=== PATIENT | female | born 1995 | race African-American/Black ===

== ENCOUNTER 2017-03-30 11:59 | Emergency (ER) | payer SELFPAY ==
[~2017-03-30] VITALS: Ht 175.3 cm; Wt 61.2 kg
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
--- NOTE | 2017-03-30 12:12 | NUR ---
MD MEDRANO AT BEDSIDE
[2017-03-30 12:13] VITALS: BP 128/80
--- NOTE | 2017-03-30 12:21 | NUR ---
Patient discharged to home in stable condition. Written and verbal after care instructions given. Patient verbalizes understanding of instruction.
== END 2017-03-30 12:22 | disposition home or self-care (01) ==
LOC: ER 12:09
DX: S09.90XA Unspecified injury of head, initial encounter (principal); V49.49XA Driver injured in collision with other motor vehicles in traffic accident, initial encounter; Y93.89 Activity, other specified; Y92.410 Unspecified street and highway as the place of occurrence of the external cause; Y99.9 Unspecified external cause status
CPT/HCPCS: 99283; A4606; Z7610

== ENCOUNTER 2023-03-15 07:46 | Emergency (ER) | payer BC ==
[~2023-03-15] VITALS: Ht 172.7 cm; Wt 57.6 kg
[2023-03-15] MEDS ORDERED: MORPHINE SULFATE INJ 2 MG/ML DISP.SYRIN IV ONE (08:30)
[2023-03-15] MEDS ORDERED: MORPHINE SULFATE INJ 2 MG/ML DISP.SYRIN ONE (08:39)
[2023-03-15 08:45] LABS: BASOPHILS % (AUTO) 0.5 % (0.0-2.0); EOSINOPHILS # (AUTO) 0.1 K/uL (0.0-0.7); HEMATOCRIT 38 % (33-45); HEMOGLOBIN 12.4 g/dL (11.5-14.8); LYMPHOCYTES # (AUTO) 2.7 K/uL (0.8-4.8); LYMPHOCYTES % (AUTO) 39.3 % (20.0-44.0); MEAN CORPUSCULAR HEMOGLOBIN 28 PG (26.0-33.0); MEAN CORPUSCULAR HGB CONC 33 g/dl (31.0-36.0); MEAN CORPUSCULAR VOLUME 84 fL (82-100); MONOCYTES # (AUTO) 0.4 K/uL (0.1-1.30); MONOCYTES % (AUTO) 5.8 % (2.0-12.0); NEUTROPHILS # (AUTO) 3.6 K/uL (1.8-8.9); NEUTROPHILS % (AUTO) 52.4 % (43.0-81.0); PLATELET COUNT (AUTO) 305 K/uL (150-450); RED BLOOD CELL COUNT(AUTO) 4.48 MIL/uL (4.0-5.2); RED CELL DISTRIBUTION WIDTH 15.4 % (11.5-15.0)
[2023-03-15 08:53] LABS: APPEARANCE,URINE CLEAR (CLEAR); BILIRUBIN,URINE NEGATIVE (NEGATIVE); BLOOD, URINE NEGATIVE Ery/uL (NEGATIVE); COLOR,URINE YELLOW (YELLOW); KETONES,URINE NEGATIVE (NEGATIVE); LEUKOCYTE ESTERASE ,URINE NEGATIVE (NEGATIVE); NITRITE, URINE NEGATIVE (NEGATIVE); PROTEIN,URINE NEGATIVE (NEGATIVE); UGLUCOSE NEGATIVE (NEGATIVE); UROBILINOGEN,URINE 0.2 EU/dL (0.2)
[2023-03-15 08:54] LABS: PREGNANCY TEST URINE QUAL NEGATIVE (NEGATIVE)
[2023-03-15 09:00] LABS: BILIRUBIN,DIRECT 0.2 mg/dL (0.0-0.2); BILIRUBIN,TOTAL 0.6 mg/dL (0.2-1.0); CALCIUM, SERUM 9.5 mg/dL (8.5-10.1); CREATININE 0.9 mg/dL (0.6-1.3); POTASSIUM 3.6 mmol/L (3.5-5.1); TOTAL PROTEIN, SERUM 8.4 g/dL (6.4-8.2)
[2023-03-15] MEDS ORDERED: IOHEXOL-300 100 ML VIAL IV ONE (09:22)
[2023-03-15] MEDS ORDERED: IV NS 0.9% 250 ML IV ONE (09:23)
[2023-03-15] MEDS ORDERED: MAG HYDROX/AL HYDROX/SIMETH 30 ML UDC PO ONE (11:30)
[2023-03-15] MEDS ORDERED: LIDOCAINE VISCOUS 2% UD 15 ML UDC MM ONE (11:30)
[2023-03-15] MEDS ORDERED: PANTOPRAZOLE 40 MG VIAL IV ONE (11:30)
[2023-03-15] MEDS ORDERED: FAMOTIDINE/PF INJ 20 MG/2 ML VIAL IV ONE ×2 (11:30→11:39)
[2023-03-15] MEDS ORDERED: PANTOPRAZOLE 40 MG VIAL ONE (11:38)
[2023-03-15] MEDS ORDERED: MAG HYDROX/AL HYDROX/SIMETH 30 ML UDC ONE (11:38)
[2023-03-15] MEDS ORDERED: LIDOCAINE VISCOUS 2% UD 15 ML UDC ONE (11:38)
[2023-03-15] MEDS ORDERED: ONDANSETRON HCL/PF 4 MG/2 ML VIAL ONE (12:32)
[2023-03-15] MEDS ORDERED: OMEP20CA15 PO (12:52)
[2023-03-15] MEDS ORDERED: MAG30ORA PO (12:52)
[2023-03-15] MEDS ORDERED: ONDANSETRON HCL/PF - ER 4 MG/2 ML VIAL IV ONE (13:00)
[2023-03-15 13:05] VITALS: BP 134/68; TEMP 97.8; O2SAT 100
== END 2023-03-15 13:06 | disposition home or self-care (01) ==
LOC: ER 07:51
DX: R10.13 Epigastric pain (principal); Z60.2 Problems related to living alone
CPT/HCPCS: 99285; 74176; 96374; 96375; 85025; 80048; 87086; 83690; 80076; 84703; 81003; 36415; J3490; J7050; C9113; J2270; Q9967; J2405

== ENCOUNTER 2024-12-10 17:56 | Emergency (ER) | payer BC ==
[~2024-12-10] VITALS: Ht 172.7 cm; Wt 59.0 kg
[~2024-12-10 17:56] MED LIST: MAG30ORA PO; OMEP20CA15 PO
[2024-12-10] MEDS ORDERED: ONDANSETRON 4 MG TAB.RAPDIS ONE (18:35)
[2024-12-10] MEDS ORDERED: FAMOTIDINE (20 MG) 20 MG TABLET ONE (18:35)
[2024-12-10] MEDS ORDERED: ACETAMINOPHEN ES 500 MG TABLET ONE (18:35)
[2024-12-10] MEDS ORDERED: MAG HYDROX/AL HYDROX/SIMETH 30 ML UDC ONE (18:35)
[2024-12-10 18:37] LABS: APPEARANCE,URINE CLEAR (CLEAR); BILIRUBIN,URINE NEGATIVE (NEGATIVE); BLOOD, URINE 1+ Ery/uL (NEGATIVE); COLOR,URINE YELLOW (YELLOW); KETONES,URINE NEGATIVE (NEGATIVE); LEUKOCYTE ESTERASE ,URINE 2+ (NEGATIVE); NITRITE, URINE NEGATIVE (NEGATIVE); PROTEIN,URINE NEGATIVE (NEGATIVE); UGLUCOSE NEGATIVE (NEGATIVE); UROBILINOGEN,URINE 0.2 EU/dL (0.2)
[2024-12-10 18:39] LABS: PREGNANCY TEST URINE QUAL NEGATIVE (NEGATIVE)
[2024-12-10] MEDS: FAMOTIDINE (20 MG) 20 MG TABLET PO ONE (18:42)
[2024-12-10] MEDS: ONDANSETRON 4 MG TAB.RAPDIS PO ONE (18:42)
[2024-12-10] MEDS: MAG HYDROX/AL HYDROX/SIMETH 30 ML UDC PO ONE (18:42)
[2024-12-10] MEDS: ACETAMINOPHEN ES 500 MG TABLET PO ONE (18:42)
[2024-12-10 18:50] LABS: ADD URINE CULTURE YES; BACTERIA,URINE Many /HPF (None Seen); SQUAMOUS EPITHELIAL CELL,UR Few /HPF (None Seen); WBC,URINE 51-80 /HPF (0-3)
[2024-12-10 18:50] LABS: BASOPHILS % (AUTO) 0.6 % (0.0-2.0); EOSINOPHILS # (AUTO) 0.1 K/uL (0.0-0.7); HEMATOCRIT 39 % (33-45); HEMOGLOBIN 12.5 g/dL (11.5-14.8); LYMPHOCYTES # (AUTO) 1.4 K/uL (0.8-4.8); LYMPHOCYTES % (AUTO) 29.2 % (20.0-44.0); MEAN CORPUSCULAR HEMOGLOBIN 28 PG (26.0-33.0); MEAN CORPUSCULAR HGB CONC 32 g/dl (31.0-36.0); MEAN CORPUSCULAR VOLUME 88 fL (82-100); MONOCYTES # (AUTO) 0.3 K/uL (0.1-1.30); MONOCYTES % (AUTO) 6.6 % (2.0-12.0); NEUTROPHILS # (AUTO) 2.9 K/uL (1.8-8.9); NEUTROPHILS % (AUTO) 61.6 % (43.0-81.0); PLATELET COUNT (AUTO) 299 K/uL (150-450); RED BLOOD CELL COUNT(AUTO) 4.42 MIL/uL (4.0-5.2); RED CELL DISTRIBUTION WIDTH 13.6 % (11.5-15.0); WHITE BLOOD COUNT (AUTO) 4.7 K/uL (4.3-11.0)
[2024-12-10] MEDS ORDERED: FAMO20TA80 PO (19:10)
[2024-12-10] MEDS ORDERED: CEPH-570 PO (19:10)
[2024-12-10] MEDS ORDERED: ONDA4TAB11 PO (19:10)
[2024-12-10 19:15] LABS: ALBUMIN 3.7 g/dL (3.4-5.0); BILIRUBIN,DIRECT 0.1 mg/dL (0.0-0.2); BILIRUBIN,TOTAL 0.5 mg/dL (0.2-1.0); CALCIUM, SERUM 8.8 mg/dL (8.5-10.1); CREATININE 0.8 mg/dL (0.6-1.3); POTASSIUM 3.6 mmol/L (3.5-5.1); TOTAL PROTEIN, SERUM 8.5 g/dL (6.4-8.2)
[2024-12-10] MEDS ORDERED: KETOROLAC TROMETHAMINE INJ 30 MG/ML VIAL ONE (19:55)
[2024-12-10] MEDS: KETOROLAC TROMETHAMINE INJ 30 MG/ML VIAL IM ONE (19:59)
[2024-12-10 20:18] VITALS: BP 118/62; TEMP 98; O2SAT 100
== END 2024-12-10 20:19 | disposition home or self-care (01) ==
LOC: ER 18:05
DX: R10.10 Upper abdominal pain, unspecified (principal); R11.2 Nausea with vomiting, unspecified; R19.7 Diarrhea, unspecified; F17.200 Nicotine dependence, unspecified, uncomplicated; Z79.899 Other long term (current) drug therapy; Z60.2 Problems related to living alone
CPT/HCPCS: 99284; 96372; 85025; 80048; 87086; 83690; 80076; 84703; 81001; 36415; J1885; Q0162